=== PATIENT | female | born 1970 | race Caucasian/White ===

== ENCOUNTER 2024-12-09 18:24 | Emergency (ER) | payer MEDICAID, SELFPAY ==
[2024-12-09 18:26] VITALS: BMI 35.4
[2024-12-09 18:33] VITALS: BP 129/88; PULSE 99; RESP 18; TEMP 36.9; O2SAT 95
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
[2024-12-09] MEDS: NAPROXEN 250 MG TABLET 500 MG PO (19:04)
[2024-12-09 21:18] VITALS: BP 120/68; PULSE 68; RESP 19; TEMP 36.2; O2SAT 97
== END 2024-12-09 21:19 | disposition home or self-care (01) ==
PROVIDERS: Emergency Provider Emergency Medicine
DX: S13.4XXA Sprain of ligaments of cervical spine, initial encounter (principal); V89.2XXA Person injured in unspecified motor-vehicle accident, traffic, initial encounter; I50.9 Heart failure, unspecified; R51.9 Headache, unspecified
CPT/HCPCS: 70450; 72125; 99283; A9270